=== PATIENT | female | born 1980 | race Caucasian/White ===

== ENCOUNTER 2016-11-01 19:29 | Emergency (ER) | payer SELFPAY ==
[~2016-11-01] VITALS: Ht 177.8 cm; Wt 98.1 kg
[~2016-11-01 19:29] MED LIST: CRS350T PO; DOXY100C2 PO; LEVO75TA57 PO; METH4TAB PO; NAPR-243 PO; TRM50T PO
--- NOTE | 2016-11-01 20:27 | ED Lower Extremity ---
General Chief Complaint: Lower Extremity Stated Complaint: L ANKLE INJ Nursing Triage Note: pt was brought to room by wheelchair. pt states tuesday night pt fell off her porch and injured her left ankle. ankle is swollen and bruised. pt states she has been walking on it but as little as possible. pt states she also drove here from [place]. Nursing Sepsis Screen: No Definite Risk Source: patient Exam Limitations: no limitations History of Present Illness Time seen by provider: 20:25 Initial Comments To ER with left ankle pain. This began 2 days ago when she tripped going down her stairs at home. She has been partially able to bear weight on her left ankle since then but has come to a point tonight where she cannot tolerate the discomfort any longer and decided to have it evaluated. She does have swelling cervical differential he but mostly laterally around the left ankle. No pain to any portion of the tibia or fibula except distally. Onset: other Severity: moderate Pain/Injury Location: left ankle Method of Injury: fell Modifying Factors: Worse With Movement Allergies and Home Medications Allergies Coded Allergies: No Known Drug Allergies (Verified , 01/22/08) Home Medications Doxycycline Hyclate 100 Mg Capsule, 1 EACH PO BID, #20 FOR INFECTION Prescribed by: JOSE CHEEK on 01/24/122141 Levothyroxine Sodium 75 Mcg Tablet, 75 MG PO DAILY, (Reported) Methylprednisolone 4 Mg/Dose-Pack Tab.ds.pk, 0 PO UD, #1 Prescribed by: JOSE CHEEK on 01/24/122141 Constitutional: see HPI EENTM: see HPI Respiratory: no symptoms reported Cardiovascular: no symptoms reported Genitourinary: no symptoms reported Musculoskeletal: see HPI Skin: no symptoms reported Psychiatric/Neurological: No Symptoms Reported Past Fxsluey-Tgyunh-Hshvzc Hx Patient Social History Alcohol Use: Denies Use Recreational Drug Use: No Smoking Status: Current Everyday Smoker Type Used: Cigarettes 2nd Hand Smoke Exposure: Yes Recent Foreign Travel: No Contact w/Someone Who Travel: No Recent Infectious Disease Expo: No Recent Hopitalizations: No Seasonal Allergies Seasonal Allergies: Yes Surgeries Surgeries: Appendectomy, Gallbladder, Tubal Ligation Respiratory Hx Respiratory Disorders: No Cardiovascular Hx Cardiac Disorders: No Neurological Hx Neurological Disorders: No Reproductive System Hx Reproductive Disorders: Yes Genitourinary Hx Genitourinary Disorders: No Gastrointestinal Hx Gastrointestinal Disorders: Yes Musculoskeletal Hx Musculoskeletal Disorders: Yes Endocrine Hx Endocrine Disorders: No HEENT HX ENT Disorders: No Psychosocial Hx Psychiatric Problems: No Blood Transfusions Hx Blood Disorders: No Physical Exam Vital Signs Vital Sign - Last 12Hours 11/01/16 19:46 Temp 99.2 Pulse 84 Resp 20 B/P (MAP) 147/84 Pulse Ox 97 O2 Delivery Room Air Capillary Refill : Less Than 3 Seconds General Appearance: WD/WN, no apparent distress HEENT: PERRL/EOMI, normal ENT inspection Neck: non-tender, full range of motion Respiratory: no respiratory distress, no accessory muscle use Gastrointestinal: normal bowel sounds, non tender, soft Hips: bilateral hip non-tender, bilateral hip normal inspection, bilateral hip normal range of motion Legs: bilateral leg non-tender, bilateral leg normal inspection, bilateral leg normal range of motion Knees: bilateral knee non-tender, bilateral knee normal inspection, bilateral knee normal range of motion Ankles: left ankle ecchymosis, left ankle pain, left ankle soft tissue tenderness, left ankle swelling Neurologic/Psychiatric: alert, normal mood/affect, oriented x 3 Skin: normal color, warm/dry Progress/Results/Core Measures Results/Orders My Orders Orders - JUAN C BETANCOURT APRN Ketorolac Injection (Toradol Injection) (11/01/16 20:30) Ankle, Left, 3 Views (11/01/16 20:25) Medications Given in ED Current Medications Medications Dose Ordered Sig/Mai Route Start Time Stop Time Status Last Admin Dose Admin Ketorolac Tromethamine 30 mg ONCE ONCE IVP 11/01/16 20:30 11/01/16 20:31 DC 11/01/16 20:28 30 MG Vital Signs/I&O Vital Sign - Last 12Hours 11/01/16 19:46 Temp 99.2 Pulse 84 Resp 20 B/P (MAP) 147/84 Pulse Ox 97 O2 Delivery Room Air Blood Pressure Mean: 105 Diagnostic Imaging Diagonstic Imaging: Xray Comments NAME: ED[facility] L [facility] REC#: [id number] PT STATUS: REG ER : 1980 PHYSICIAN: JUAN C BETANCOURT APRN ADMIT DATE: 11/01/16/ER Draft Date of Exam:11/01/16 ANKLE, LEFT, 3 VIEWS INDICATION: Pain and swelling status post injury COMPARISON: None. FINDINGS: 3 views of the left ankle were obtained. There is no acute fracture or dislocation. No focal osseous lesions are seen. There is moderate generalized soft tissue swelling. There are no radiopaque foreign bodies. IMPRESSION: 1. Moderate generalized soft tissue swelling of the left ankle, but no radiographic evidence of acute fracture or dislocation. Dictated on workstation # [id number] Dict: 11/01/162040 Trans: 11/01/162042 [facility] [id number] Interpreted by: LISY MCLEOD Electronically signed by: Departure Impression Impression: Primary Impression: Ankle sprain Disposition: HOME, SELF-CARE Condition: Stable Departure-Patient Inst. Decision time for Depature: 20:47 Referrals: FLORES SANCHEZ DO (PCP/Family) Primary Care Physician Patient Instructions: Ankle Sprain (DC) Add. Discharge Instructions: 1. Return to ER for any concerns 2. Elevate the ankle as much as possible. Use ice pack for 30 minutes every 2- 3 hours 3. Crutches as needed when walking so that you're not bearing weight on this. You may start bearing weight on it again once the pain and swelling subsides but this may take 2 weeks or so 4. If you have persistent pain or instability in the same lesion follow-up with your regular doctor to discuss an MRI of the ankle to evaluate the ligament complex All discharge instructions reviewed with patient and/or family. Voiced understanding. Scripts Hydrocodone/Acetaminophen ([place] 5-325 Tablet) 1 Each Tablet 1 EACH PO Q6H Y for PAIN-SEVERE, #10 TAB Prov: JUAN C BETANCOURT APRN 11/01/16 JUAN C BETANCOURT APRN Nov 01, 2016 20:27
[2016-11-01] MEDS ORDERED: KETOROLAC 30 MG/ML VIAL IVP ONE (20:30)
--- NOTE | 2016-11-01 20:43 | Diagnostic Imaging Report ---
INDICATION: Pain and swelling status post injury COMPARISON: None. FINDINGS: 3 views of the left ankle were obtained. There is no acute fracture or dislocation. No focal osseous lesions are seen. There is moderate generalized soft tissue swelling. There are no radiopaque foreign bodies. IMPRESSION: 1. Moderate generalized soft tissue swelling of the left ankle, but no radiographic evidence of acute fracture or dislocation. Dictated by: Dictated on workstation # [id number]
[2016-11-01] MEDS ORDERED: HYDR-757 PO (20:49)
[2016-11-01 21:08] VITALS: BP 147/84
== END 2016-11-01 21:08 | disposition home or self-care (01) ==
LOC: EDUNIT# 19:29 → ER 19:32
DX: S93.402A Sprain of unspecified ligament of left ankle, initial encounter (principal); F17.210 Nicotine dependence, cigarettes, uncomplicated; Z98.51 Tubal ligation status; Z90.49 Acquired absence of other specified parts of digestive tract; W10.9XXA Fall (on) (from) unspecified stairs and steps, initial encounter; Y92.009 Unspecified place in unspecified non-institutional (private) residence as the place of occurrence of the external cause
CPT/HCPCS: 73610; 96374